=== PATIENT | male | born 1940 | race Caucasian/White ===

== ENCOUNTER 2019-08-07 10:59 | Emergency (ER) | payer MEDICARE ==
[~2019-08-07] VITALS: Ht 182.9 cm; Wt 72.6 kg
--- NOTE | 2019-08-07 11:10 | NUR ---
[id number] from home c/o headache and blurry vision s/p glf at 0500. denies ko. On room air, breathing evenly and unlabored. connected to the monitor and pulse ox. Kept comfortable, will continue to monitor accordingly.
[2019-08-07] MEDS ORDERED: ONDANSETRON HCL/PF 4 MG/2 ML VIAL ONE (12:26)
[2019-08-07] MEDS ORDERED: MORPHINE SULFATE INJ 4 MG/ML DISP.SYRIN ONE (12:27)
[2019-08-07 12:28] LABS: BASOPHILS # (AUTO) 0.2 /CMM (0.0-0.2); BASOPHILS % (AUTO) 1.9 % (0.0-2.0); EOSINOPHILS % (AUTO) 1.3 % (0.0-6.0); HEMATOCRIT 47 % (39-51); HEMOGLOBIN 15.7 g/dL (13.5-17.5); LYMPHOCYTES % (AUTO) 11.8 % (20.0-44.0); MEAN CORPUSCULAR HGB CONC 34 g/dl (31.0-36.0); MEAN CORPUSCULAR VOLUME 94 fL (80-96); MONOCYTES # (AUTO) 0.4 /CMM (0.1-1.30); MONOCYTES % (AUTO) 4.6 % (2.0-12.0); NEUTROPHILS # (AUTO) 6.6 /CMM (1.8-8.9); NEUTROPHILS % (AUTO) 80.4 % (43.0-81.0); PLATELET COUNT (AUTO) 206 /CMM (150-450); RED BLOOD CELL COUNT(AUTO) 4.98 MIL/uL (4.5-6.0); WHITE BLOOD COUNT (AUTO) 8.2 K/uL (4.3-11.0)
[2019-08-07] MEDS ORDERED: IV NS 0.9% 500 ML BAG IV ONE (12:30)
[2019-08-07] MEDS ORDERED: ONDANSETRON HCL/PF 4 MG/2 ML VIAL IVP ONE (12:30)
[2019-08-07] MEDS ORDERED: MORPHINE SULFATE INJ 2 MG/ML DISP.SYRIN IV ONE (12:30)
[2019-08-07 12:38] LABS: CALCIUM, SERUM 8.5 mg/dL (8.5-10.1); CARBON DIOXIDE 24 mmol/L (21-32); CHLORIDE 109 mmol/L (98-107); CREATININE 1.2 mg/dL (0.6-1.3); GLUCOSE 94 mg/dL (74-106); POTASSIUM 4.1 mmol/L (3.5-5.1); SODIUM SERUM 145 mmol/L (136-145); UREA NITROGEN, BLOOD 16 mg/dL (7-18)
[2019-08-07 12:43] LABS: ALANINE AMINOTRANSFERASE 15 U/L (12-78); ALBUMIN 3.5 g/dL (3.4-5.0); ALKALINE PHOSPHATASE 61 U/L (46-116); ASPARTATE AMINOTRANSFERASE 22 U/L (15-37); BILIRUBIN,DIRECT 0.1 mg/dL (0.0-0.2); BILIRUBIN,TOTAL 0.6 mg/dL (0.2-1.0); TOTAL PROTEIN, SERUM 6.7 g/dL (6.4-8.2)
--- NOTE | 2019-08-07 12:52 | NUR ---
wheeled patient via [facility] for ct of the head.
--- NOTE | 2019-08-07 13:03 | NUR ---
patient came back from CT.
[2019-08-07] MEDS ORDERED: LEVETIRACETAM (500MG) 500 MG in IV NS 0.9% 100 ML IV SCH (14:00)
[2019-08-07] MEDS ORDERED: NICARDIPINE IN NACL, ISO-OSM 20 MG/200 ML PIGGYBACK IV ONE (14:00)
--- NOTE | 2019-08-07 14:00 | NUR ---
patient in bed, with spouse Carlo and good friend at bedside and signed POLST.
--- NOTE | 2019-08-07 14:19 | NUR ---
BRENNEN SYKES [facility]... ROOM NUMBER 4523 REPORT GIVE TO [phone] TRANSPORT LEONELA BE PRN AND IS ARRIVING BY 1430
--- NOTE | 2019-08-07 14:31 | NUR ---
called [facility] and spoke to Kary charge nurse and will call back in 10-15 mins to get a report.
[2019-08-07 14:32] VITALS: BP 142/78
--- NOTE | 2019-08-07 15:20 | NUR ---
report given to Kary charge nurse at [facility] patient going to room 4523.
== END 2019-08-07 15:15 | disposition short-term general hospital (02) ==
LOC: ER 11:01 → EDSEX 11:01 → ER 15:15
DX: I61.8 Other nontraumatic intracerebral hemorrhage (principal); R94.31 Abnormal electrocardiogram [ECG] [EKG]
CPT/HCPCS: 36415; 70450; 71045; 80048; 80076; 84484; 85025; 85730; 93005; 96365; 96375; 99285; A6403; A6410; J1953; J2270; J2405; J7030; J7040